=== PATIENT | male | born 1960 | race African-American/Black ===

== ENCOUNTER → 2016-12-18 | Outpatient (CLI) | payer OTHER ==
[~2016-12-18] MED LIST: BENICAR20 MG PO; CRESTOR20 MG PO; DEPAKOTE500 MG PO; MULTIVITAMINS1 EAC7 PO; NAPROSYN500 MG PO
== END ==
LOC: ULTRA 14:03
DX: Z13.6 Encounter for screening for cardiovascular disorders (principal); I73.9 Peripheral vascular disease, unspecified; M79.604 Pain in right leg

== ENCOUNTER → 2016-12-18 | Outpatient (CLI) | payer OTHER | LOC: CAT 13:54 | DX: Z13.6 Encounter for screening for cardiovascular disorders (principal) ==

== ENCOUNTER → 2017-01-27 | Outpatient (CLI) | payer OTHER ==
--- NOTE | ~2017-01-27 | EXE ---
[facility] [address] [email or web address] [address] STRESS ECHOCARDIOGRAM Name: MIKAEL THOMPSON Room #: REG [facility]#: [id number] Admission: 01/27/17 Attend Phys: Abel Presley MD Discharge: Date of : 58 Date of Service: 01/27/17 1154 Report #: [id number] THIS REPORT FOR: //name// APPROVED REPORT Exam: Stress Echocardiogram Indication: Elevated calcium score Patient Location: Out-Patient Stress Nurse: Shirley Singleton RN Status: routine Ht: 5 ft 10 in HR: 65 bpm BP: 131/84 mmHg Rhythm: NSR Medical History Allergies: No known drug allergies Cardiac Risk Factors: HTN, Hyperlipidemia Procedure The patient underwent an Exercise Stress Test using the Chris Protocol. Blood pressure, heart rate, and EKG were monitored. An Echocardiogram was performed by clock repair technician in four stages in quad fashion. At peak stress, four selected images were obtained and placed side by side with resting images for comparison. Stress Test Details Stress Test: Exercise stress testing was performed using a Chris protocol. HR Resting HR: 74 bpm Max Heart Rate (APMHR): 163 bpm Max HR Achieved: 169 bpm Target HR (85% APMHR): 138 bpm % of APMHR: 103 Recovery HR: 88 bpm HR response to stress: Normal HR response to stress BP Resting BP: 131/84 mmHg Max BP: 168/82 mmHg Recovery BP: 140/80 mmHg ECG Resting ECG: Sinus Rhythm Stress ECG: Sinus Rhythm, nonspecific ST-T abnormalities ST Change: Non-ischemic [facility] [address] [place] [address] STRESS ECHOCARDIOGRAM Name: MIKAEL THOMPSON Room #: REG [facility]#: [id number] Admission: 01/27/17 Attend Phys: Abel Presley MD Discharge: Date of : 58 Date of Service: 01/27/17 1154 Report #: [id number] Clinical Reason for Termination: Completed protocol/moderate fatigue Exercise duration: 10 min 11 sec Exercise capacity: 13.4 METs Pre-Stress Echo The resting Echocardiogram showed normal left ventricular contractility with an estimated Ejection Fraction of about 55%. Mild MR, trace AI. Normal wall motion in all segments on baseline images. Post-Stress Echo The stress Echocardiogram showed normal left ventricular contractility with an estimated Ejection Fraction of about >70%. Normal augmentation of wall motion in all segments on post stress images. Clinical No clinical or ECG evidence for ischemia. Conclusion Clinical Response: Non-ischemic Exercise Capacity: Average Stress ECG Response: Non-ischemic Stress Echo Images: Non-ischemic No clinical, EKG or echocardiographic evidence for ischemia. Other Information Study Quality: Good <Conclusion> No clinical, EKG or echocardiographic evidence for ischemia. <ELECTRONICALLY SIGNED> By: Abel Presley MD 01/27/17 1154 1154 1154 Abel Presley MD /TITO
--- NOTE | ~2017-01-27 | 2DMMODE ---
[facility] [place] [address] 2 D/M-MODE ECHOCARDIOGRAM Name: MIKAEL THOMPSON Room #: REG CL [facility]#: [id number] Admission: 01/27/17 Attend Phys: Abel Presley MD Discharge: Date of : 58 Date of Service: 01/27/17 1040 Report #: [id number] THIS REPORT FOR: //name// APPROVED REPORT Study performed: 01/27/2017 10:04:39 EXAM: Comprehensive 2D, Doppler, and color-flow Echocardiogram Patient Location: Out-Patient Status: routine BSA: 2.21 HR: 72 bpm BP: 131/84 mmHg Rhythm: NSR Other Information Study Quality: Adequate Indications Elevated calcium score. Hx: HTN, HLP 2D Dimensions RVDd: 37.23 mm LVEF(%): 55.33 (>50%) IVSd: 8.76 (7-11mm) LVOT Diam: 22.89 (18-24mm) LVDd: 44.02 mm PWd: 8.64 (7-11mm) Ascending Ao: 32.96 (22-36mm) LVDs: 31.43 (25-40mm) Aortic Root: 32.29 mm Mendez's LVEF: 55.33 % Volumes Left Atrial Volume (Systole) Single Plane 4CH: 44.94 mL Single Plane 2CH: 52.72 mL LA ESV Index: 23.00 mL/m2 Aortic Valve AoV Peak Manuel.: 1.26 m/s AO Peak Gr.: 6.33 mmHg LVOT Max P.45 mmHg LVOT Max V: 1.05 m/s TC Vmax: 3.45 cm2 Mitral Valve E/A Ratio: 1.4 MV Decel. Time: 194.83 ms [facility] [place] [address] 2 D/M-MODE ECHOCARDIOGRAM Name: MIKAEL THOMPSON Room #: [facility]#: [id number] Admission: 01/27/17 Attend Phys: Abel Presley MD Discharge: Date of : 58 Date of Service: 01/27/17 1040 Report #: [id number] MV E Max Manuel.: 0.77 m/s MV A Manuel.: 0.56 m/s MV PHT: 56.50 ms IVRT: 69.20 ms Pulmonary Valve PV Peak Manuel.: 1.25 m/s PV Peak Gr.: 6.24 mmHg Pulmonary Vein P Vein S: 0.59 m/s P Vein A: 0.34 m/s P Vein D: 0.77 m/s P Vein A Dur.: 90.0 msec P Vein S/D Ratio: 0.77 Tricuspid Valve RAP Estimate: 5.00 mmHg Left Ventricle The left ventricle is normal size. There is normal LV segmental wall motion. Mild basal septal hypertrophy is present. Left ventricular systolic function is normal. LVEF is 55%. Moderate diastolic dysfunction is present (pseudonormal filling). Right Ventricle The right ventricle is normal size. The right ventricular systolic function is normal. Atria The left atrium size is normal. The right atrium size is normal. Aortic Valve The aortic valve is normal in structure. Trace aortic regurgitation. There is no aortic valvular stenosis. Mitral Valve The mitral valve is normal in structure. Mild mitral regurgitation. Tricuspid Valve The tricuspid valve is normal in structure. There is no tricuspid valve regurgitation noted. Pulmonic Valve The pulmonary valve is normal in structure. Trace pulmonic regurgitation. [facility] [address] [place] [address] 2 D/M-MODE ECHOCARDIOGRAM Name: MIKAEL THOMPSON Room #: REG CL [facility]#: [id number] Admission: 01/27/17 Attend Phys: Abel Presley MD Discharge: Date of : 58 Date of Service: 01/27/17 1040 Report #: [id number] Great Vessels The aortic root is normal in size. The ascending aorta is normal in size. IVC is normal in size and collapses >50% with inspiration. Pericardium There is no pericardial effusion. <Conclusion> The left ventricle is normal size. Left ventricular systolic function is normal. The right ventricle is normal size. The left atrium size is normal. Trace aortic regurgitation. Mild mitral regurgitation. There is no pericardial effusion. <ELECTRONICALLY SIGNED> By: Abel Presley MD 01/27/17 1040 1040 1040 Abel Presley MD /INF
== END ==
LOC: CV 08:56
DX: I34.0 Nonrheumatic mitral (valve) insufficiency (principal); I25.10 Atherosclerotic heart disease of native coronary artery without angina pectoris

== ENCOUNTER → 2018-12-22 | Outpatient (CLI) | payer OTHER | LOC: MRI 12:34 | DX: R42 Dizziness and giddiness (principal); R51 Headache ==

== ENCOUNTER → 2020-05-16 | Outpatient (CLI) | payer OTHER | LOC: LAB 08:13 | PROVIDERS: ATTEND Neuromusculoskeletal Medicine & OMM | DX: U07.1 COVID-19 (principal) ==

== ENCOUNTER → 2020-10-24 | Outpatient (CLI) | payer OTHER | LOC: RAD 15:15 | PROVIDERS: ATTEND Neuromusculoskeletal Medicine & OMM | DX: M51.37 Other intervertebral disc degeneration, lumbosacral region (principal); M48.07 Spinal stenosis, lumbosacral region; M48.061 Spinal stenosis, lumbar region without neurogenic claudication; M25.78 Osteophyte, vertebrae; I70.0 Atherosclerosis of aorta ==

== ENCOUNTER → 2020-10-31 | Outpatient (CLI) | payer OTHER | LOC: MRI 08:17 | PROVIDERS: ATTEND Neuromusculoskeletal Medicine & OMM | DX: M47.26 Other spondylosis with radiculopathy, lumbar region (principal); M47.27 Other spondylosis with radiculopathy, lumbosacral region; M48.061 Spinal stenosis, lumbar region without neurogenic claudication; G96.191 Perineural cyst ==

== ENCOUNTER 2020-11-21 10:53 | Emergency (ER) | payer OTHER ==
[~2020-11-21] VITALS: Ht 177.8 cm; Wt 99.8 kg
[2020-11-21 10:53] VITALS: BP 129/83
== END 2020-11-21 12:08 | disposition home or self-care (01) ==
LOC: ER 10:53
DX: R53.83 Other fatigue (principal); J06.9 Acute upper respiratory infection, unspecified; I10 Essential (primary) hypertension; Z20.822 Contact with and (suspected) exposure to COVID-19; Z88.0 Allergy status to penicillin; Z79.899 Other long term (current) drug therapy

== ENCOUNTER → 2021-01-05 | Outpatient (CLI) | payer OTHER ==
[~2021-01-05] VITALS: Ht 177.8 cm; Wt 102.1 kg
[~2021-01-05] MED LIST changes: +ASA81BEC PO; +GABAPENTIN100 MG PO; +LIPITOR 40 MG T40 M1 PO
[2021-01-05 08:20] VITALS: BP 133/84
--- NOTE | 2021-01-05 08:36 | NUR ---
Pain Clinic Assessment: 1. History of Osteoarthritis: LUMBAR SPINE History of Rheumatoid Arthritis: DENIES 2. Height: 5 ft. 10 in. 177.8 cm. Weight: 225.0 lb. oz. 102.060 kg. Patient's BMI: 32.3 3. Vital Signs: BP: 133/84 Pulse: 67 Resp: 16 Temp: 02 Sat: 98 ECG Mon: 4. Pain Intensity: 8 TO 10 5. Fall Risk: Dizziness: N Needs help standing or walking: N Fallen in the last 3 months: N Fall risk comments: 6. Patient on Blood Thinner: None 7. History of Hypertension: Y 8. Opioid Therapy greater than 6 weeks: N Opiate Contract Signed: 9. Risk Assessment Tool Provided: LOW-0 10. Functional Assessment Tool: 11. Recreational Drug Use: Never Drug Type: Tobacco Use: Never Smoker Tobacco Type: Amount or Packs/day: How Many Years: Alcohol Use: Yes Frequency: Special Occasions Quant: 1
== END ==
LOC: PAIN 07:52
PROVIDERS: ATTEND Anesthesiology Pain Medicine
DX: M47.26 Other spondylosis with radiculopathy, lumbar region (principal); M47.27 Other spondylosis with radiculopathy, lumbosacral region; M48.061 Spinal stenosis, lumbar region without neurogenic claudication; M48.07 Spinal stenosis, lumbosacral region; I10 Essential (primary) hypertension; E78.5 Hyperlipidemia, unspecified; G96.191 Perineural cyst; Z88.8 Allergy status to other drugs, medicaments and biological substances; Z79.82 Long term (current) use of aspirin; Z79.899 Other long term (current) drug therapy

== ENCOUNTER → 2021-04-23 | Outpatient (CLI) | payer OTHER | LOC: SJCVCIMAG 10-17 12:52 | PROVIDERS: ATTEND Internal Medicine Cardiovascular Disease | DX: I25.10 Atherosclerotic heart disease of native coronary artery without angina pectoris (principal); I10 Essential (primary) hypertension; E78.5 Hyperlipidemia, unspecified ==